=== PATIENT | male | born 1965 | race Hispanic/Latino ===

== ENCOUNTER 2019-10-15 21:00 | Inpatient (IN) | payer OTHER ==
[~2019-10-15] VITALS: Ht 170.2 cm; Wt 73.9 kg
[2019-10-15] MEDS ORDERED: MORPHINE SULFATE 2 MG/ML 1ML SYG ONE ×3 (21:30→22:37)
[2019-10-15 21:31] LABS: BASOPHILS % (AUTO) 0.3 % (0.0-5.0); EOSINOPHILS % (AUTO) 0.1 % (0.0-8.0); HEMATOCRIT 47.1 % (42-54); LYMPHOCYTES % (AUTO) 4.9 % (21.0-51.0); MEAN CORPUSCULAR HEMOGLOBIN 30.5 pg (27.0-33.0); MEAN CORPUSCULAR HGB CONC 33.3 g/dL (32.0-36.0); MEAN CORPUSCULAR VOLUME 91.6 fL (79-99); MONOCYTES % (AUTO) 6.1 % (3.0-13.0); NEUTROPHILS % (AUTO) 88.1 % (40.0-77.0); PLATELET COUNT (AUTO) 258 K/uL (130-400); RED BLOOD CELL COUNT(AUTO) 5.14 MIL/uL (4.50-6.20); RED CELL DISTRIBUTION WIDTH 12.3 % (11.0-15.5); WHITE BLOOD COUNT (AUTO) 20.2 K/uL (4.8-10.8)
[2019-10-15] MEDS ORDERED: SODIUM CHLORIDE 0.9% 1000ML 1,000 ML IV ONE (21:58)
[2019-10-15 22:00] LABS: ALBUMIN 4.4 g/dL (3.5-5.0); BILIRUBIN,TOTAL 0.3 mg/dL (0.2-1.0); TOTAL PROTEIN, SERUM 8.3 g/dL (6.0-8.3)
[2019-10-15] MEDS ORDERED: IOHEXOL 350 MG/ML 100ML INFUS..BTL IV ONE (22:05)
[2019-10-15] MEDS ORDERED: OCTYL 2-CYANOACRYLATE 1 EACH TP ONE (22:45)
[2019-10-16 02:35] VITALS: BP 139/80
[2019-10-16] MEDS ORDERED: MORPHINE SULFATE 2 MG/ML 1ML SYG ONE (02:35)
[2019-10-16] MEDS ORDERED: ONDANSETRON HCL 4 MG/2 ML VIAL IVP PRN (03:00)
[2019-10-16] MEDS ORDERED: FLU VACC QS2019-20 36MOS UP/PF 60 MCG/0.5 ML ML IM ONE ×2 (05:15→20:06)
[2019-10-16] MEDS: LACTATED RINGERS 1000ML 1,000 ML IV SCH (05:28)
[2019-10-16 07:20] LABS: HEMATOCRIT 43.1 % (42-54); MEAN CORPUSCULAR HEMOGLOBIN 30.8 pg (27.0-33.0); MEAN CORPUSCULAR HGB CONC 33.2 g/dL (32.0-36.0); MEAN CORPUSCULAR VOLUME 92.7 fL (79-99); PLATELET COUNT (AUTO) 242 K/uL (130-400); RED BLOOD CELL COUNT(AUTO) 4.65 MIL/uL (4.50-6.20); RED CELL DISTRIBUTION WIDTH 12.4 % (11.0-15.5); WHITE BLOOD COUNT (AUTO) 12.2 K/uL (4.8-10.8)
[2019-10-16 08:00] VITALS: BP 123/73
[2019-10-16] MEDS: MORPHINE SULFATE 2 MG/ML 1ML SYG IVP PRN ×4 (08:50→21:02)
[2019-10-16] MEDS ORDERED: ACETAMINOPHEN-CODEINE 300/30MG TAB PO PRN (10:30)
[2019-10-16 11:00] VITALS: BP 120/77
[2019-10-16 11:31] LABS: APPEARANCE,URINE Clear (CLEAR); BILIRUBIN,URINE Negative (NEGATIVE); COLOR,URINE Yellow (YELLOW); GLUCOSE, URINE (UA) Negative (NEGATIVE); KETONES,URINE Negative (NEGATIVE); LEUKOCYTE ESTERASE ,URINE Negative (NEGATIVE); NITRATE,URINE Negative (NEGATIVE); OCCULT BLOOD,URINE Negative (NEGATIVE); PROTEIN,URINE Negative (NEGATIVE); UROBILINOGEN,URINE 0.2 mg/dL (0.2-1.0)
[2019-10-16] MEDS ORDERED: MENTHOL TP PRN (12:45)
[2019-10-16] MEDS ORDERED: METHYL SALICYLATE TP PRN (12:45)
[2019-10-16] MEDS ORDERED: TROLAMINE SALICYLATE CREAM 85 GM TUBE TP PRN (13:15)
--- NOTE | 2019-10-16 13:44 | NUR ---
cm note met with patient and states resides at home alone. independent with adls and self care. no dme. works doing odd jobs, self employed, provided with list of low income clinics in the area, and rx asssit program. pt verbalizes understanding, states will followup. [facility] no other dc needs. Addendum: 10/16/19 at 1347 by ZURI POWELL CM Amended: Links added.
[2019-10-16] MEDS: ACETAMINOPHEN-CODEINE 300/30MG TAB PO PRN ×2 (15:16→20:10)
[2019-10-16 16:00] VITALS: BP 136/70
[2019-10-16 19:08] VITALS: BP 125/78
[2019-10-16 23:39] VITALS: BP 122/74
[2019-10-17] MEDS: MORPHINE SULFATE 2 MG/ML 1ML SYG IVP PRN ×3 (00:55→09:51)
[2019-10-17 04:00] VITALS: BP 126/83
[2019-10-17] MEDS: LACTATED RINGERS 1000ML 1,000 ML IV SCH (05:08)
[2019-10-17 08:00] VITALS: BP 123/75
--- NOTE | 2019-10-17 08:00 | NUR ---
NOTE AAOX3. C/O SORENESS AND PAIN TO RIGHT SIDE OF CHEST. HE IS S/P FALL FROM A LADDER AND HE HAS FRACTURED RIBS. 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 BBS CLEAR TO ALL LOBES. NO OTHER PROBLEMS VOICED JUST THE PAIN. STATES HE IS ITCHING AND WANTED A BEDBATH TO BE DONE BY A FEMALE HEDIS ABSTRACTOR. HOWEVER, HE HAD BEEN VERY IMPROPER WITH A FEW OF THE FEMALE COWORKERS AND MADE THEM FEEL VERY UNCOMFORTABLE. HE WAS TOLD BY HIS NURSE KARO YESTERDAY THAT A MALE NURSE AND HEDIS ABSTRACTOR LAST NIGHT COULD HELP HIM BUT HE REFUSED TO HAVE BATH BY MALE. THIS MORNING HE INSISTED ON HAVING A BATH BY FEMALE AND HE SPOKE TO CHARGE NURSE ABOUT IT BUT WAS TOLD DR DEGROOT ENCOURAGED HIM TO GET UP AND WALK. P.T. IS IN THE CASE. HE WILL GET UP WITH P.T. AND WALK AND MAYBE HE WILL BE ASSISTED TO BATHROOM FOR SHOWER.
[2019-10-17] MEDS ORDERED: IBUPROFEN 600 MG TABLET PO PRN (10:45)
[2019-10-17] MEDS ORDERED: MORPHINE SULFATE 4 MG/1ML SYG IV PRN (10:45)
[2019-10-17 12:00] VITALS: BP 126/74
--- NOTE | 2019-10-17 12:00 | NUR ---
NOTE PATIENT VERY UPSET BECAUSE HE SAYS HE WAS TOLD BY DR DEGROOT AND KARL VALDES WAS A WITNESS THAT HE COULD HAVE IV PAIN MEDICINE WHENEVER HE WANTED TO. I EXPLAINED TO HIM THAT DR DEGROOT ORDERED PRN MEDS IV BUT CAN BE GIVEN EVERY 3 HOURS NEEDED BUT WAS NOT 3 HOURS WHEN HE ASKED EARLIER SO I GAVE HIM IBUPROFEN AND HE FELT I WAS NOT GIVING HIM HIS MEDS M.D. ORDERED. I EXPLAINED AGAIN HOW PRN MEDS WORK AND TOLD HIM THAT AT THIS TIME HE COULD RECEIVE MORPHINE, WHICH IS WHAT HE HAD BEEN REQUESTING ALL NIGHT BUT HE SAID NO BECAUSE HE WAS GOING TO LEAVE HOME AND WAS REQUESTING HIS IV REMOVED. I WILL NOTIFY DR DEGROOT.
--- NOTE | 2019-10-17 13:20 | NUR ---
NOTE DR DEGROOT MADE AWARE OF PATIENT WANTING TO LEAVE AND HE SAID HE WOULD HAVE TO GO AMA SINCE HE WAS NOT DOING GOOD ON HIS INCENTIVE SPIROMETRY. HE SAID IF HE WANTS TO GO IT WOULD HAVE TO BE AMA. PATIENT WAS ADAMANT ABOUT LEAVING SO HE SIGNED FORM. INSTRUCTED TO BE CAUTIOUS WITH IBUPROFEN OR WHATEVER MEDICINE HE SAID HE COULD FIND IN [place], OVER THE COUNTER FOR PAIN.
== END 2019-10-17 13:20 | disposition left against medical advice (07) | DRG 183 ==
LOC: EDH 21:00 → EDHIP 21:01 → 4AH 10-16 03:14 → 4DH 10-17 07:01
PROVIDERS: ADMIT Surgery; ATTEND Surgery
DX: S22.41XA Multiple fractures of ribs, right side, initial encounter for closed fracture (principal); S27.1XXA Traumatic hemothorax, initial encounter; W17.89XA Other fall from one level to another, initial encounter; Z53.29 Procedure and treatment not carried out because of patient's decision for other reasons; Z88.0 Allergy status to penicillin; Y93.89 Activity, other specified; Y92.89 Other specified places as the place of occurrence of the external cause; Y99.8 Other external cause status
CPT/HCPCS: 36415; 70450; 71045; 71260; 72125; 74177; 80053; 81003; 82550; 85025; 85027; 97039; G0378; J7030; J7120; Q2035; Q9967